=== PATIENT | male | born 1950 | race Caucasian/White ===

== ENCOUNTER 2022-07-05 09:02 | Day surgery (SDC) | payer MEDICARE ==
[~2022-07-05] VITALS: Ht 167.6 cm; Wt 93.0 kg
[~2022-07-05 09:02] MED LIST: INDOCYANINE GREEN 25 MG VIAL IV ONE
[2022-07-05] MEDS ORDERED: BUPIVACAINE /PF 0.5% 30 ML VIAL ONE (11:02)
[2022-07-05] MEDS ORDERED: LR 1,000 ML IV.SOLN IV ONE (11:02)
[2022-07-05] MEDS ORDERED: MIDAZOLAM HCL 2 MG/2 ML VIAL (VERSED) ONE (11:02)
[2022-07-05] MEDS ORDERED: SUGAMMADEX SODIUM 200 MG/2 ML VIAL IV ONE (11:02)
[2022-07-05] MEDS ORDERED: fentaNYL CITRATE/PF 100 MCG/2 ML AMP ONE (11:02)
[2022-07-05] MEDS ORDERED: DEXAMETHASONE SOD PHOSPHATE 4 MG/ML VIAL ONE (11:02)
[2022-07-05] MEDS ORDERED: LIDOCAINE/EPI MPF 1%1:200000 30 ML VIAL ONE (11:02)
[2022-07-05] MEDS ORDERED: KETOROLAC TROMETHAMINE 30 MG VIAL ONE (11:02)
[2022-07-05] MEDS ORDERED: NS IRRIG SOLN 1000 ML IR ONE (11:02)
[2022-07-05] MEDS ORDERED: LIDOCAINE 2%, 20 ML MDV ONE (11:02)
[2022-07-05] MEDS ORDERED: DESFLURANE 15 MIN GAS INH ONE (11:02)
[2022-07-05] MEDS ORDERED: ONDANSETRON HCL 4 MG/2 ML VIAL ONE (11:02)
[2022-07-05] MEDS ORDERED: ROCURONIUM BROMIDE 10 MG/ML (ZEMURON) ONE (11:02)
[2022-07-05] MEDS ORDERED: PROPOFOL 200MG/ 20ML VIAL (DIPRIVAN) IV ONE (11:02)
[2022-07-05] MEDS ORDERED: NS 1000 ML IV.SOLN IV ONE (11:02)
[2022-07-05] MEDS ORDERED: OXYTOCIN 10 UNIT/ML VIAL ONE (11:02)
[2022-07-05] MEDS ORDERED: ACETAMINOPHEN I.V. 1000 MG 100 ML IV ONE (11:47)
[2022-07-05] MEDS ORDERED: hydrALAZINE HCL 20 MG/ML VIAL IVP PRN (12:00)
[2022-07-05] MEDS ORDERED: METOCLOPRAMIDE HCL 10 MG/2 ML VIAL IVP PRN (12:00)
[2022-07-05] MEDS ORDERED: LR 1,000 ML IV SCH (12:00)
[2022-07-05] MEDS ORDERED: LABETALOL 100 MG/ 20ML VIAL IVP PRN (12:00)
[2022-07-05] MEDS ORDERED: MEPERIDINE HCL/PF 25 MG/ML DISP.SYRIN IVP PRN (12:00)
[2022-07-05] MEDS ORDERED: HYDROmorphone 1 MG/ML INJ. CARTRIDGE IVP PRN ×2 (12:00)
[2022-07-05] MEDS ORDERED: HYDROmorphone 1 MG/ML INJ. CARTRIDGE ONE (15:21)
[2022-07-05] MEDS ORDERED: HYDROcodone/ACETAMIN 5-325 MG TAB (NORCO/ VICODIN) ONE (15:24)
[2022-07-05] MEDS ORDERED: HYDROcodone/ACETAMIN 5-325 MG TAB (NORCO/ VICODIN) PO ONE (15:30)
[2022-07-05 16:52] VITALS: BP_SYST 117
== END 2022-07-05 16:55 | disposition home or self-care (01) ==
LOC: SDS 09:02 → SMU 09:05 → SDS 16:55
PROVIDERS: ATTEND Surgery
DX: K80.13 Calculus of gallbladder with acute and chronic cholecystitis with obstruction (principal); I10 Essential (primary) hypertension; G47.33 Obstructive sleep apnea (adult) (pediatric); E78.00 Pure hypercholesterolemia, unspecified; Z20.822 Contact with and (suspected) exposure to COVID-19; Z79.899 Other long term (current) drug therapy
CPT/HCPCS: 36415; 87426; 47562; 88304; J3490 ×2; J1100; J1885; J2001; J3465; J2405; J2590; J2704; J3010; J1170; J7120; J7030; J0131; C1727; S2900; E0190